=== PATIENT | male | born 1985 | race Two or more races ===

== ENCOUNTER 2023-10-26 20:23 | Emergency (ER) | payer SELFPAY ==
[~2023-10-26] VITALS: Ht 172.7 cm; Wt 108.3 kg
[2023-10-26 20:30] VITALS: BP 139/81; PULSE 83; RESP 14; TEMP 98.7; O2SAT 96
[2023-10-26] MEDS ORDERED: CEPH500C PO (21:32)
[2023-10-26] MEDS ORDERED: PRED20TA2 PO (21:32)
[2023-10-26] MEDS: diphenhdrAMINE HCL 25 MG CAP PO ONE (22:14)
[2023-10-26] MEDS: DexAMETHasone 4 MG TAB PO ONE (22:14)
== END 2023-10-26 23:05 | disposition home or self-care (01) ==
LOC: ER 20:23
DX: S70.361A Insect bite (nonvenomous), right thigh, initial encounter (principal); Z79.52 Long term (current) use of systemic steroids; W57.XXXA Bitten or stung by nonvenomous insect and other nonvenomous arthropods, initial encounter; Y93.89 Activity, other specified; Y92.89 Other specified places as the place of occurrence of the external cause; Y99.8 Other external cause status
CPT/HCPCS: 99283; J8540